=== PATIENT | female | born 1980 | race Caucasian/White ===

== ENCOUNTER 2016-12-17 00:52 | Emergency (ER) ==
[2016-12-17 01:00] VITALS: BP 131/86; TEMP 98.2; BMI 38.0
[2016-12-17] MEDS ORDERED: DECADRON 4 MG/ML SDV IM STA (01:26)
--- NOTE | 2016-12-17 05:01 | ED.PDOC ---
General ED Provider: Dr. ROSA RAZO-ER Chief Complaint: Non-specific Complaint Stated Complaint: i think i got bit by something--i was out visiting a friend in the [place] and my foot starting swelling and burning and itchying.. Time Seen by Physician: 00:55 Mode of Arrival: Walk-In Information Source: Patient Exam Limitations: No limitations Primary Care Provider: ROSA RAZO Nursing and Triage Documentation Reviewed and Agree: Yes Skin Complaint Exam - Skin/Soft Tissue Complaint/Exam Onset/Duration: 30 min Symptoms Are: Still present Timing: Constant Initial Severity: Mild Current Severity: Mild Location: anterior left foot Character: Reports: Redness, Swelling, Raised, Painful Aggravating: Reports: None Alleviating: Reports: None Associated Signs and Symptoms: Reports: Itching, Tenderness. Denies: Fever, Chills, Drainage, Bruising, Red streaks, Joint swelling Related History: Reports: Insect bite/sting Related Surgical History: Reports: None Recent Exposure to Others w/Similar Symptoms: No Skin Findings: Present: Erythema Joint Tenderness Present: No Differential Diagnoses: Infection, Other Review of Systems - Review Of Systems Constitutional: Reports: No symptoms Eyes: Reports: No symptoms Ears, Nose, Mouth, Throat: Reports: No symptoms Respiratory: Reports: No symptoms Cardiac: Reports: No symptoms GI: Reports: No symptoms : Reports: No symptoms Musculoskeletal: Reports: Gout, Other Skin: Reports: No symptoms Neurological: Reports: No symptoms Endocrine: Reports: No symptoms Hematologic/Lymphatic: Reports: No symptoms All Other Systems: Reviewed and Negative Past Medical History - Past Medical History Previously Healthy: Yes Endocrine: Reports: None Cardiovascular: Reports: None Respiratory: Reports: Asthma Hematological: Reports: None Gastrointestinal: Reports: None Genitourinary: Reports: None Neuro/Psych: Reports: Seizure, Anxiety Musculoskeletal: Reports: None Cancer: Reports: None Last Menstrual Period: PRESENTLY - Surgical History General Surgical History: Reports: , Tonsillectomy, Adenoidectomy - Family History Family History: Reports: Unknown - Social History Smoking Status: Former smoker Hx Substance Use: No Alcohol Screening: Occasionally - Immunizations Tetanus Shot up to Date: (UNKNOWN) Physical Exam - Physical Exam Appearance: Well-appearing, No pain distress, Well-nourished Pain Distress: Mild Eyes: JOHN, EOMI, Conjunctiva clear ENT: Ears normal, Nose normal, Oropharynx normal Neck: Supple Respiratory: Airway patent, Breath sounds clear, Breath sounds equal, Respirations nonlabored Cardiovascular: RRR, Pulses normal, No rub, No murmur GI/: Soft, Nontender, No masses, Bowel sounds normal, No Organomegaly Musculoskeletal: Limited ROM Skin: Warm, Dry, Normal color Neurological: Sensation intact, Motor intact, Reflexes intact, Cranial nerves intact, Alert, Oriented Psychiatric: Affect appropriate, Mood appropriate Re-Evaluation - Re-Evaluation Time of Re-Evaluation: 05:43 Status: Improved Vital Signs Stable: Yes Pain Level: 0 Appearance: NAD Lungs: Clear Skin: Warm and Dry Neuro: Alert and Oriented X3 CV: RRR Critical Care Note - Critical Care Note Total Time (mins): 0 Course - Course Hematology/Chemistry: 12/17/16 04:55 Orders, Labs, Meds: Lab Review 12/17/16 04:55 WBC 8.53 RBC 4.28 Hgb 13.5 Hct 39.1 MCV 91.4 MCH 31.5 H MCHC 34.5 RDW Coeff of Gudelia 12.6 Plt Count 256 Immature Gran % (Auto) 0.4 Neut % (Auto) 77.4 Lymph % (Auto) 18.8 Ramsey % (Auto) 2.3 Eos % (Auto) 0.6 Baso % (Auto) 0.5 Immature Gran # (Auto) 0.0 Neut # 6.6 Lymph # 1.6 Ramsey # 0.2 L Eos # 0.1 Baso # 0.0 D-Dimer (Manual) 248.89 Orders Category Date Time Status CBC W/ AUTO DIFF Stat LAB 12/17/16 04:55 Completed D-DIMER Stat LAB 12/17/16 04:55 Completed Dexamethasone 4 mg/ml Inj [Decadron 4 mg/ml Sdv] MEDS 12/17/16 01:26 Discontinued 4 mg IM ONCE STA Medications Discontinued Medications Generic Name Dose Route Start Last Admin Trade Name Freq PRN Reason Stop Dose Admin Dexamethasone Sodium Phosphate 4 mg 12/17/16 01:26 12/17/16 01:33 Decadron 4 Mg/Ml Sdv IM 12/17/16 01:27 4 mg ONCE STA Administration Vital Signs: Temp Pulse Resp BP Pulse Ox 12/17/16 00:53 98.2 F 73 18 131/86 100 Departure - Departure Time of Disposition: 05:43 Disposition: HOME SELF-CARE Discharge Problem: Insect bite Qualifiers: Encounter type: initial encounter Qualifier Code: (W57.XXXA) Bitten or stung by nonvenomous insect and other nonvenomous arthropods, initial encounter Instructions: Insect Bite or Sting (ED) Condition: Good Pt referred to PMD for follow-up: Yes Additional Instructions: ice and elevation of foot--call me if any problems Allergies/Adverse Reactions: Allergies aspirin Adverse Reaction (Verified 12/17/16 01:01) codeine Adverse Reaction (Verified 12/17/16 01:01) hydromorphone HCl [From Dilaudid] Adverse Reaction (Verified 12/17/16 01:01) ibuprofen Adverse Reaction (Verified 12/17/16 01:01) latex Adverse Reaction (Verified 12/17/16 01:01) promethazine HCl [From Phenergan] Adverse Reaction (Verified 06/22/16 16:38) propoxyphene napsylate [From Darvocet-N 100] Adverse Reaction (Verified 01:01) Sulfa (Sulfonamide Antibiotics) Adverse Reaction (Verified 12/17/16 01:01) Home Medications: Ambulatory Orders Buspirone HCl 10 mg PO BID 12/17/16 Disposition Discussed With: Patient, Family
[2016-12-17 05:12] LABS: BASOPHILS % (AUTO) 0.5 % (0.0-3.0); EOSINOPHILS # (AUTO) 0.1 K/ul (0.0-0.7); EOSINOPHILS % (AUTO) 0.6 % (0.0-7.0); HEMATOCRIT 39.1 % (37.0-47.0); HEMOGLOBIN 13.5 g/dl (12.0-16.0); IMMATURE GRANULOCYTE % (AUTO) 0.4 % (0.0-5.0); LYMPHOCYTES # (AUTO) 1.6 K/uL (0.60-3.4); LYMPHOCYTES % (AUTO) 18.8 (10.0-50.0); MEAN CORPUSCULAR HEMOGLOBIN 31.5 pg (27.0-31.0); MEAN CORPUSCULAR HGB CONC 34.5 (31.8-35.4); MEAN CORPUSCULAR VOLUME 91.4 fl (81.0-99.0); MONOCYTES # (AUTO) 0.2 K/uL (0.4-2.0); MONOCYTES % (AUTO) 2.3 (0-10); NEUTROPHILS # (AUTO) 6.6 K/ul (2.0-6.9); NEUTROPHILS % (AUTO) 77.4; PLATELET COUNT 256 10^3/uL (140-440); RED BLOOD COUNT 4.28 10^6/ul (4.20-5.40); WHITE BLOOD COUNT 8.53 K/ul (4.6-10.2)
== END 2016-12-17 06:10 | disposition home or self-care (01) ==
LOC: ED 00:52
DX: S90.862A Insect bite (nonvenomous), left foot, initial encounter (principal); W57.XXXA Bitten or stung by nonvenomous insect and other nonvenomous arthropods, initial encounter
CPT/HCPCS: 36415; 85025; 85379; 96372; 99282

== ENCOUNTER 2017-02-22 14:38 | Outpatient (CLI) ==
--- NOTE | 2017-02-22 15:18 | CT ---
EXAM: CT of the abdomen pelvis without contrast History: Abdominal pain. Comparison: CT abdomen pelvis 03/01/2015 Technique: Multiplanar CT images through the abdomen pelvis were obtained without the administratio n of IV contrast Findings: Lung bases are clear. No acute osseous abnormalities. No renal stones and no hydronephro sis. The appendix is normal. Status post cholecystectomy. No focal liver or splenic lesions. No peripancreatic inflammation. Adrenal glands are unremarkable. No bowel obstruction. No free air a nd no ascites. No bladder wall thickening. No perirectal inflammation. Scattered colonic stool. Adnexal structures appear appropriate for patient's age. Impression: No acute intra-abdominal or pelvic process.
== END 2017-02-22 14:39 | disposition home or self-care (01) ==
LOC: RAD 14:38
PROVIDERS: ATTEND Family Medicine
DX: R10.84 Generalized abdominal pain (principal); R14.0 Abdominal distension (gaseous)
CPT/HCPCS: 74176

== ENCOUNTER 2017-03-08 19:52 | Emergency (ER) ==
[2017-03-08 19:52] VITALS: BMI 38.0
[2017-03-08 20:06] VITALS: BP 121/76; TEMP 98.8
--- NOTE | 2017-03-08 20:41 | ED.PDOC ---
General ED Provider: Dr. STEPHANI GILBERT Chief Complaint: Headache Stated Complaint: Pateint is a 36 year old female who comes to the ER with c/o headache that she describes a Sharp and intermittent at time. Started on the left cheondoism and has been migrating to the back of head. States it feels Like similar headaches. Admits to Nausea at present, Light sensitive. Talked to her physicain Dr. Razo's office today and was told to come to ER. Time Seen by Physician: 20:15 Mode of Arrival: Walk-In Information Source: Patient Exam Limitations: No limitations Primary Care Provider: ROSA RAZO Nursing and Triage Documentation Reviewed and Agree: Yes Neurological Complaint Exam - Headache Complaint/Exam Onset: Gradual Duration: 4 weeks Symptoms Are: Still present Timing: Constant Worst Headache Ever: No Initial Severity: Moderate Current Severity: Severe Location: Diffuse Character: Reports: Dull, Throbbing, Typical headache, Migraine Aggravating: Reports: Bright lights Alleviating: Reports: None Associated Signs and Symptoms: Reports: Nausea, Vomiting. Denies: Dizziness, Seizure, Sinus pressure, Fever, Neck pain, Neck stiffness, Decreased LOC, Visual changes Related History: Reports: Similar episode Related Surgical History: Reports: None SAH Risk Factors: Reports: None Meningitis Risk Factors: Reports: None SDH Risk Factors: Reports: None Temporal Arteritis Risk Factors: Reports: None Normal Head CT Within Last 12 Months: Yes (1 year ago ) Fundoscopic Exam: Present: Normal Findings Papilledema Present: No Sinus Tenderness: Present: None TMJ Tenderness: Present: None Glascow Coma Scale (see protocol): 15 Meningeal Signs Positive: Yes ROM Limited In: No Limitiations Focal Weakness: Present: None Focal Sensory Loss: Present: None Gait: Normal Nystagmus Present: No Gag Reflex Present: Yes [id number]: Normal Findings Romberg Test Positive: No Babinski Sign: Negative Right, Negative Left Head Picture: 1 - headache 2 - headache Differential Diagnoses: Meningitis, Migraine Review of Systems - Review Of Systems Constitutional: Reports: No symptoms Eyes: Reports: Photophobia Ears, Nose, Mouth, Throat: Reports: No symptoms Respiratory: Reports: No symptoms Cardiac: Reports: No symptoms GI: Reports: Nausea, Poor appetite : Reports: No symptoms Musculoskeletal: Reports: No symptoms Skin: Reports: No symptoms Neurological: Reports: Anxiety, Headache Endocrine: Reports: No symptoms Hematologic/Lymphatic: Reports: No symptoms All Other Systems: Reviewed and Negative Past Medical History - Past Medical History Previously Healthy: Yes Endocrine: Reports: None Cardiovascular: Reports: None Respiratory: Reports: Asthma Hematological: Reports: None Gastrointestinal: Reports: None Genitourinary: Reports: None Neuro/Psych: Reports: Migraine, Seizure, Anxiety Musculoskeletal: Reports: None Cancer: Reports: None Last Menstrual Period: 02/11/17 - Surgical History General Surgical History: Reports: , Tonsillectomy, Adenoidectomy - Family History Family History: Reports: Unknown - Social History Smoking Status: Former smoker Hx Substance Use: No Alcohol Screening: None - Immunizations Tetanus Shot up to Date: No (unsure) Physical Exam - Physical Exam Appearance: Ill-appearing, Obese Ill-appearing: Moderate Pain Distress: Severe Eyes: JOHN, EOMI, Conjunctiva clear ENT: Nose normal, Oropharynx normal Neck: Supple Respiratory: Airway patent, Breath sounds clear, Breath sounds equal, Respirations nonlabored Cardiovascular: RRR, Pulses normal, No rub, No murmur GI/: Soft, Nontender, No masses, Bowel sounds normal, No Organomegaly Musculoskeletal: Normal strength, ROM intact Skin: Warm, Dry, Normal color Neurological: Sensation intact, Motor intact, Alert, Oriented Psychiatric: Anxious Critical Care Note - Critical Care Note Total Time (mins): 10 Course - Course Orders, Labs, Meds: Orders Category Date Time Status Ondansetron HCl/Pf [Zofran 4 mg/2 ml] MEDS 03/08/17 20:44 Discontinued 4 mg IM ONCE STA Sumatriptan Succinate [Imitrex] MEDS 03/08/17 20:45 Discontinued 6 mg SUBCUT ONCE STA Medications Discontinued Medications Generic Name Dose Route Start Last Admin Trade Name Darwinq PRN Reason Stop Dose Admin Ondansetron HCl 4 mg 03/08/17 20:44 03/08/17 20:54 Zofran 4 Mg/2 Ml IM 03/08/17 20:45 4 mg ONCE STA Administration Sumatriptan Succinate 6 mg 03/08/17 20:45 03/08/17 20:54 Imitrex SUBCUT 03/08/17 20:46 6 mg ONCE STA Administration Vital Signs: Temp Pulse Resp BP Pulse Ox 03/08/17 19:58 98.8 F 73 20 121/76 97 Departure - Departure Time of Disposition: 21:45 Disposition: HOME SELF-CARE Discharge Problem: Migraine Instructions: Migraine Headache (ED) Condition: Stable Pt referred to PMD for follow-up: Yes Additional Instructions: Take medications as prescribed Follow up wth PCP in 3 days Prescriptions: Ondansetron HCl [Zofran Tab] 4 mg PO Q8H PRN #14 tablet PRN Reason: Nausea / Vomiting Sumatriptan [Imitrex] 20 mg NS BID PRN #5 spray PRN Reason: Migrane Allergies/Adverse Reactions: Allergies aspirin Adverse Reaction (Verified 03/08/17 19:56) codeine Adverse Reaction (Verified 03/08/17 19:56) hydromorphone HCl [From Dilaudid] Adverse Reaction (Verified 03/08/17 19:56) ibuprofen Adverse Reaction (Verified 03/08/17 19:56) latex Adverse Reaction (Verified 03/08/17 19:56) promethazine HCl [From Phenergan] Adverse Reaction (Verified 03/08/17 19:56) propoxyphene napsylate [From Darvocet-N 100] Adverse Reaction (Verified 19:56) Sulfa (Sulfonamide Antibiotics) Adverse Reaction (Verified 03/08/17 19:56) Home Medications: Ambulatory Orders Buspirone HCl 10 mg PO BID 12/17/16 Ondansetron HCl [Zofran Tab] 4 mg PO Q8H PRN #14 tablet 03/08/17 Orphenadrine Citrate [Norflex] 100 mg PO BEDTIME PRN 03/08/17 Sumatriptan [Imitrex] 20 mg NS BID PRN #5 spray 03/08/17 Disposition Discussed With: Patient, Family
[2017-03-08] MEDS ORDERED: ZOFRAN 4 MG/2 ML IM STA (20:44)
[2017-03-08] MEDS ORDERED: IMITREX SUBCUT STA (20:45)
== END 2017-03-08 22:03 | disposition home or self-care (01) ==
LOC: ED 19:52
DX: G43.909 Migraine, unspecified, not intractable, without status migrainosus (principal)
CPT/HCPCS: 96372; 99283

== ENCOUNTER 2017-03-21 22:13 | Emergency (ER) ==
[2017-03-21 22:19] VITALS: TEMP 99.4; BMI 39.5
[2017-03-21] MEDS ORDERED: IMITREX SUBCUT STA (22:29)
[2017-03-21] MEDS ORDERED: ZOFRAN 4 MG/2 ML IM STA (22:29)
--- NOTE | 2017-03-21 22:31 | ED.PDOC ---
General ED Provider: Dr. OBED THOMASON Chief Complaint: Headache Stated Complaint: having migraiange attack, nasal imitrex did not help. Time Seen by Physician: 22:29 Mode of Arrival: Walk-In Information Source: Patient Primary Care Provider: ROSA RAZO Nursing and Triage Documentation Reviewed and Agree: Yes Neurological Complaint Exam - Headache Complaint/Exam Onset: Gradual Symptoms Are: Still present Timing: Intermittent Episodes Lasting: Hours Worst Headache Ever: No Initial Severity: Moderate Current Severity: Severe Location: Left, Frontal Character: Reports: Throbbing, Typical headache, Migraine Aggravating: Reports: Bright lights Alleviating: Reports: None Associated Signs and Symptoms: Reports: Nausea. Denies: Dizziness, Seizure, Vomiting, Sinus pressure, Fever, Neck pain, Neck stiffness, Decreased LOC, Visual changes Related History: Reports: Similar episode Related Surgical History: Reports: None SAH Risk Factors: Reports: None Meningitis Risk Factors: Reports: None SDH Risk Factors: Reports: None Normal Head CT Within Last 12 Months: No Temporal Artery Tenderness: Present: None Sinus Tenderness: Present: None TMJ Tenderness: Present: None Meningeal Signs Positive: No Pain on Passive Flexion-Positive Kernig's: No ROM Limited In: No Limitiations Focal Weakness: Present: None Focal Sensory Loss: Present: None Gait: Normal Nystagmus Present: No Gag Reflex Present: No Differential Diagnoses: Migraine Review of Systems - Review Of Systems Constitutional: Reports: No symptoms Eyes: Reports: No symptoms Ears, Nose, Mouth, Throat: Reports: No symptoms Respiratory: Reports: No symptoms Cardiac: Reports: No symptoms GI: Reports: No symptoms : Reports: No symptoms Musculoskeletal: Reports: No symptoms Skin: Reports: No symptoms Neurological: Reports: Headache Endocrine: Reports: No symptoms Hematologic/Lymphatic: Reports: No symptoms All Other Systems: Reviewed and Negative Past Medical History - Past Medical History Previously Healthy: Yes Endocrine: Reports: None Cardiovascular: Reports: None Respiratory: Reports: Asthma Hematological: Reports: None Gastrointestinal: Reports: None Genitourinary: Reports: None Neuro/Psych: Reports: Migraine, Seizure, Anxiety Musculoskeletal: Reports: None Cancer: Reports: None Last Menstrual Period: 03/04/17 - Surgical History General Surgical History: Reports: , Tonsillectomy, Adenoidectomy - Family History Family History: Reports: Unknown - Social History Smoking Status: Former smoker Hx Substance Use: No Alcohol Screening: None - Immunizations Tetanus Shot up to Date: No (unsure) Physical Exam - Physical Exam Appearance: Ill-appearing, Obese Eyes: OJHN, EOMI, Conjunctiva clear ENT: Ears normal, Nose normal, Oropharynx normal Respiratory: Airway patent, Breath sounds clear, Breath sounds equal, Respirations nonlabored Cardiovascular: RRR, Pulses normal, No rub, No murmur GI/: Soft, Nontender, No masses, Bowel sounds normal, No Organomegaly Musculoskeletal: Normal strength, ROM intact, No edema, No calf tenderness Skin: Warm, Dry, Normal color Neurological: Sensation intact, Motor intact, Reflexes intact, Cranial nerves intact, Alert, Oriented Psychiatric: Affect appropriate, Mood appropriate Critical Care Note - Critical Care Note Total Time (mins): 0 Course - Course Orders, Labs, Meds: Orders Category Date Time Status Ondansetron HCl/Pf [Zofran 4 mg/2 ml] MEDS 03/21/17 22:29 Stat 4 mg IM ONCE STA Sumatriptan Succinate [Imitrex] MEDS 03/21/17 22:29 Stat 6 mg SUBCUT ONCE STA Vital Signs: Temp Pulse Resp BP Pulse Ox 03/21/17 22:14 99.4 F 77 20 123/76 98 Departure - Departure Time of Disposition: 22:36 Disposition: HOME SELF-CARE Discharge Problem: Migraine headache Qualifiers: Migraine type: without aura Status migrainosus presence: without status migrainosus Intractability: not intractable Qualifier Code: (G43.009) Migraine without aura, not intractable, without status migrainosus Instructions: Migraine Headache (ED) Condition: Stable Pt referred to PMD for follow-up: Yes Additional Instructions: keep taking imitrex prn if not better needs f/u with PMD Allergies/Adverse Reactions: Allergies aspirin Adverse Reaction (Verified 03/21/17 22:19) codeine Adverse Reaction (Verified 03/21/17 22:19) hydromorphone HCl [From Dilaudid] Adverse Reaction (Verified 03/21/17 22:19) ibuprofen Adverse Reaction (Verified 03/21/17 22:19) latex Adverse Reaction (Verified 03/21/17 22:19) promethazine HCl [From Phenergan] Adverse Reaction (Verified 03/21/17 22:19) propoxyphene napsylate [From Darvocet-N 100] Adverse Reaction (Verified 22:19) Sulfa (Sulfonamide Antibiotics) Adverse Reaction (Verified 03/21/17 22:19) Home Medications: Ambulatory Orders Buspirone HCl 10 mg PO BID 12/17/16 Ondansetron HCl [Zofran Tab] 4 mg PO Q8H PRN #14 tablet 03/08/17 Orphenadrine Citrate [Norflex] 100 mg PO BEDTIME PRN 03/08/17 Sumatriptan Succinate [Imitrex] 100 mg PO DAILY PRN 03/21/17 Disposition Discussed With: Patient, Family
[2017-03-21 23:28] VITALS: BP 122/68
--- NOTE | 2017-03-21 23:31 | CT ---
EXAM: CT brain without contrast HISTORY: Headache TECHNIQUE: CT of the brain without intravenous contrast FINDINGS: There is no acute hemorrhage midline shift or mass effect. No hydrocephalus or abnormal extra-axial fluid collection. No significant parenchymal attenuation abnormality. The bony cranium appears normal. The visualized paranasal sinuses are clear. Soft tissues without significant abnorm ality. IMPRESSION: 1. CT of the brain within normal limits.
[2017-03-22] MEDS ORDERED: DECADRON 4 MG/ML SDV IM STA
== END 2017-03-22 01:25 | disposition home or self-care (01) ==
LOC: ED 22:13
DX: G43.009 Migraine without aura, not intractable, without status migrainosus (principal)
CPT/HCPCS: 96372; 99283

== ENCOUNTER 2017-08-05 22:01 | Emergency (ER) ==
[2017-08-05 22:01] VITALS: BMI 38.0
[2017-08-05 22:13] VITALS: BP 126/85; TEMP 99.3
--- NOTE | 2017-08-05 22:53 | ED.PDOC ---
General ED Provider: Dr. STEPHANI GILBERT Chief Complaint: Sore Throat Stated Complaint: Patient is a 37 year old female who comes to the ER with 3 day history of sore throat sore gums, body aches. Took 500mg Tylenol at 5 pm. Time Seen by Physician: 22:30 Mode of Arrival: Walk-In Information Source: Patient Exam Limitations: No limitations Primary Care Provider: ROSA RAZO Nursing and Triage Documentation Reviewed and Agree: Yes Review of Systems - Review Of Systems Constitutional: Reports: Chills, Fever Eyes: Reports: No symptoms Ears, Nose, Mouth, Throat: Reports: Mouth pain, Throat pain Respiratory: Reports: No symptoms Cardiac: Reports: No symptoms GI: Reports: No symptoms : Reports: No symptoms Musculoskeletal: Reports: No symptoms Skin: Reports: No symptoms Neurological: Reports: No symptoms Endocrine: Reports: No symptoms Hematologic/Lymphatic: Reports: No symptoms All Other Systems: Reviewed and Negative Past Medical History - Past Medical History Previously Healthy: Yes Endocrine: Reports: None Cardiovascular: Reports: None Respiratory: Reports: Asthma Hematological: Reports: None Gastrointestinal: Reports: None Genitourinary: Reports: None Neuro/Psych: Reports: Migraine, Seizure, Anxiety Musculoskeletal: Reports: None Cancer: Reports: None Last Menstrual Period: 07-13-17 - Surgical History General Surgical History: Reports: , Tonsillectomy, Adenoidectomy - Family History Family History: Reports: Unknown - Social History Smoking Status: Former smoker Hx Substance Use: No Alcohol Screening: None - Immunizations Tetanus Shot up to Date: No Physical Exam - Physical Exam Appearance: Ill-appearing Ill-appearing: Mild Pain Distress: Moderate Eyes: JOHN, EOMI, Conjunctiva clear ENT: Ears normal, Nose normal, Oropharynx normal Neck: Supple Respiratory: Airway patent, Breath sounds clear, Breath sounds equal, Respirations nonlabored Cardiovascular: RRR, Pulses normal, No rub, No murmur GI/: Soft, Nontender, No masses, Bowel sounds normal, No Organomegaly Musculoskeletal: Normal strength, ROM intact, No edema, No calf tenderness Skin: Warm, Dry, Normal color Neurological: Sensation intact, Motor intact, Alert, Oriented Psychiatric: Affect appropriate, Mood appropriate Critical Care Note - Critical Care Note Total Time (mins): 0 Course - Course Orders, Labs, Meds: Orders Category Date Time Status MOLECULAR GROUP A STREP Stat LAB 08/05/17 22:20 Results STREP SCREEN Stat LAB 08/05/17 22:20 Results Vital Signs: Temp Pulse Resp BP Pulse Ox 08/05/17 22:02 99.3 F 76 18 126/85 98 Departure - Departure Time of Disposition: 22:58 Disposition: HOME SELF-CARE Discharge Problem: Sore throat symptom, Viral syndrome Instructions: Viral Syndrome (ED) Condition: Fair Pt referred to PMD for follow-up: Yes Additional Instructions: Push fluids Alternate Tylenol with Motrin as needed for pain or fever. Allergies/Adverse Reactions: Allergies aspirin Adverse Reaction (Verified 08/05/17 22:13) codeine Adverse Reaction (Verified 08/05/17 22:13) hydromorphone HCl [From Dilaudid] Adverse Reaction (Verified 08/05/17 22:13) ibuprofen Adverse Reaction (Verified 08/05/17 22:13) Iodinated Contrast- Oral and IV Dye Adverse Reaction (Verified 08/05/17 22:13) latex Adverse Reaction (Verified 08/05/17 22:13) promethazine HCl [From Phenergan] Adverse Reaction (Verified 08/05/17 22:13) propoxyphene napsylate [From Darvocet-N 100] Adverse Reaction (Verified 22:13) Sulfa (Sulfonamide Antibiotics) Adverse Reaction (Verified 08/05/17 22:13) sumatriptan [From Imitrex] Adverse Reaction (Verified 08/05/17 22:13) Home Medications: Ambulatory Orders Buspirone HCl 10 mg PO BID 12/17/16 Ondansetron HCl [Zofran Tab] 4 mg PO Q8H PRN #14 tablet 03/08/17 Orphenadrine Citrate [Norflex] 100 mg PO BEDTIME PRN 03/08/17 Topiramate [Topamax] 50 mg PO TID 08/05/17 Disposition Discussed With: Patient
== END 2017-08-05 23:04 | disposition home or self-care (01) ==
LOC: ED 22:01
DX: J02.9 Acute pharyngitis, unspecified (principal); B34.9 Viral infection, unspecified
CPT/HCPCS: 87651; 87880; 99283

== ENCOUNTER 2018-02-27 07:44 | Outpatient (CLI) ==
[2018-02-27 00:32] VITALS: BMI 39.5
== END 2018-02-27 08:07 | disposition short-term general hospital (02) ==
LOC: AMBL 07:44
PROVIDERS: ATTEND Emergency Medicine
DX: R10.13 Epigastric pain (principal)

== ENCOUNTER 2018-03-26 20:46 | Emergency (ER) ==
[2018-03-26 20:46] VITALS: BMI 39.5
[2018-03-26 20:52] VITALS: BP 144/85; TEMP 98.5
[2018-03-26] MEDS ORDERED: TYLENOL PO STA (21:01)
--- NOTE | 2018-03-26 21:07 | ED.PDOC ---
General ED Provider: Dr. STEPHANI GILBERT Chief Complaint: Extremity Pain/Injury Stated Complaint: Patient states she accidentally fell 2 days ago then yesterday. Has sustained injuries to the right Shoulder, elbow wrsit and hand. Has limited mobility due to pain. Time Seen by Physician: 20:50 Mode of Arrival: Walk-In Information Source: Patient Exam Limitations: No limitations Primary Care Provider: ROSA RAZO Nursing and Triage Documentation Reviewed and Agree: Yes Does patient meet sepsis criteria?: No If yes, has appropriate treatment been initiated?: No System Inflammatory Response Syndrome: Not Applicable Sepsis Protocol: For patient's 13 years and over: Temp is 96.8 and below OR 101 and greater Pulse >90 BPM Resp >20/minute Acutely Altered Mental Status Are patient's symptoms suggestive of a new infection, such as: -Pneumonia -Skin, Soft Tissue -Endocarditis -UTI -Bone, Joint Infection -Implantable Device -Acute Abdominal Infection -Wound Infection -Meningitis -Blood Stream Catheter Infection -Unknown Musculoskeletal Complaint Exam - Hand/Wrist Complaint/Exam Location of Pain: Reports: Right, Hand, Wrist Mechanism of Injury: Reports: Trauma (fall ) Onset/Duration: 2 days Symptoms Are: Still present Onset of Pain: Reports: Immediate Initial Severity: Severe Current Severity: Moderate Location: Reports: Diffuse (Right upper extremity ) Character: Reports: Aching, Throbbing Alleviating: Reports: None Aggravating: Reports: Movement Associated Signs and Symptoms: Reports: Swelling, Numbness. Denies: Redness, Bruising, Fever, Weakness, Tingling Related History: Denies: Similar episode, Occupational injury Dominant Hand: Right Related Surgical History: Reports: None Hand/Wrist Findings: Present: Swelling, Ecchymosis Tenderness: Present: Radius, Ulna, Carpal Hand Picture: 1 - tenderness to palpation Differential Diagnoses: Closed Fracture, Sprain, Strain - Shoulder Pain Complaint/Exam Mechanism of Injury: Reports: Trauma Onset/Duration: 2 days Symptoms Are: Still present Timing: Constant Initial Severity: Severe Current Severity: Moderate Location: Reports: Diffuse Character: Reports: Aching, Throbbing, Spasmodic Alleviating: Reports: None Aggravating: Reports: Movement, Lifting, Flexion, Extension, Internal rotation Associated Signs and Symptoms: Reports: Swelling, Bruising Related History: Denies: Similar episode, Occupational injury, Dominant hand right Non-Orthopedic Risk Factors: Reports: None DVT Risk Factors: Reports: None Septic Arthritis Risk Factors: Reports: None Shoulder Findings: Absent: Ecchymosis, Abnormal contour, Rotation Tenderness: Present: Proximal humerus, Rotator cuff muscles Limited Range of Motion: Present: Abduction, Extension, Internal rotation, External rotation, Rotator cuff muscles Differential Diagnoses: Sprain, Strain Review of Systems - Review Of Systems Constitutional: Reports: No symptoms Eyes: Reports: No symptoms Ears, Nose, Mouth, Throat: Reports: No symptoms Respiratory: Reports: No symptoms Cardiac: Reports: No symptoms GI: Reports: No symptoms : Reports: No symptoms Musculoskeletal: Reports: Joint pain, Joint swelling, Muscle pain Skin: Reports: No symptoms Neurological: Reports: Anxiety Endocrine: Reports: No symptoms Hematologic/Lymphatic: Reports: No symptoms All Other Systems: Reviewed and Negative Past Medical History - Past Medical History Previously Healthy: Yes Endocrine: Reports: None Cardiovascular: Reports: None Respiratory: Reports: Asthma Hematological: Reports: None Gastrointestinal: Reports: GERD Genitourinary: Reports: None Neuro/Psych: Reports: Migraine, Seizure, Anxiety, Depression, Other (ADD) Musculoskeletal: Reports: Arthritis Cancer: Reports: None Last Menstrual Period: 1 WEEK AGO - Surgical History General Surgical History: Reports: (x2), Cholecystectomy, Tonsillectomy, Adenoidectomy - Family History Family History: Reports: Heart - Social History Smoking Status: Former smoker Hx Substance Use: No Alcohol Screening: None - Immunizations Tetanus Shot up to Date: No (UNKNOWN) Physical Exam - Physical Exam Appearance: Well-appearing, Ill-appearing Ill-appearing: Mild Pain Distress: Moderate Respiratory: Airway patent, Breath sounds clear, Breath sounds equal, Respirations nonlabored Cardiovascular: RRR, Pulses normal, No rub, No murmur Musculoskeletal: Limited ROM Skin: Warm, Dry Neurological: Sensation intact, Alert, Oriented Psychiatric: Anxious Critical Care Note - Critical Care Note Total Time (mins): 0 Course - Course Orders, Labs, Meds: Orders Category Date Time Status Splint [ED SPLINT APPLICATION] .ONCE EMERGENCY 03/26/18 21:31 Active Acetaminophen [Tylenol] MEDS 03/26/18 21:01 Discontinued 1,000 mg PO ONCE STA ELBOW, RIGHT MIN 3 VIEWS Stat RADS 03/26/18 20:59 Taken HAND, RIGHT 3 VIEWS Stat RADS 03/26/18 20:59 Taken SHOULDER, RIGHT MIN 2V Stat RADS 03/26/18 20:59 Taken WRIST, RIGHT 3 VIEWS Stat RADS 03/26/18 20:59 Taken Medications Discontinued Medications Generic Name Dose Route Start Last Admin Trade Name Darwinq PRN Reason Stop Dose Admin Acetaminophen 1,000 mg 03/26/18 21:01 03/26/18 21:20 Tylenol PO 03/26/18 21:02 1,000 mg ONCE STA Administration Vital Signs: Temp Pulse Resp BP Pulse Ox 03/26/18 20:46 98.5 F 94 H 16 144/85 H 96 Departure - Departure Time of Disposition: 21:50 Disposition: HOME SELF-CARE Discharge Problem: Sprain of wrist, right Qualifiers: Encounter type: initial encounter Qualified Code(s): S63.501A - Unspecified sprain of right wrist, initial encounter Rotator cuff strain Qualifiers: Encounter type: initial encounter Laterality: right Qualified Code(s): S46.011A - Strain of muscle(s) and tendon(s) of the rotator cuff of right shoulder, initial encounter Instructions: Wrist Sprain (ED), Rotator Cuff Injury (ED) Condition: Fair Pt referred to PMD for follow-up: Yes IPMP verified?: No Additional Instructions: Follow up with PCP In 2-3 days Take Tylenol as needed for pain Allergies/Adverse Reactions: Allergies aspirin Adverse Reaction (Verified 03/26/18 20:49) codeine Adverse Reaction (Verified 03/26/18 20:49) hydromorphone HCl [From Dilaudid] Adverse Reaction (Verified 03/26/18 20:49) ibuprofen Adverse Reaction (Verified 03/26/18 20:49) Iodinated Contrast- Oral and IV Dye Adverse Reaction (Verified 03/26/18 20:49) latex Adverse Reaction (Verified 03/26/18 20:49) promethazine HCl [From Phenergan] Adverse Reaction (Verified 03/26/18 20:49) propoxyphene napsylate [From Darvocet-N 100] Adverse Reaction (Verified 20:49) Sulfa (Sulfonamide Antibiotics) Adverse Reaction (Verified 03/26/18 20:49) sumatriptan [From Imitrex] Adverse Reaction (Verified 03/26/18 20:49) Home Medications: Ambulatory Orders Ondansetron HCl [Zofran Tab] 4 mg PO Q8H PRN #14 tablet 03/08/17 Pantoprazole Sodium [Protonix] 40 mg PO DAILY 02/26/18 Disposition Discussed With: Patient, Family
--- NOTE | 2018-03-27 07:44 | DI ---
Exam: Three views of the right shoulder. Comparison: Chest x-ray performed 02/26/2018. Reason for exam: Fall. FINDINGS: No acute fracture or malalignment. The joint spaces appear well maintained. The imaged o sseous structures appear grossly unremarkable without acute fracture. The humeral head articulates w ith the acetabulum. The clavicle appears intact. Impression: No acute fracture or dislocation in the right shoulder
--- NOTE | 2018-03-27 07:45 | DI ---
EXAM: Right wrist three-view HISTORY: Fell yesterday, then into day COMPARISON: None FINDINGS: No acute fracture or dislocation. Two well marginated ossifications near the ulnar styloi d are likely due to old trauma. marginated No focal soft tissue abnormality. IMPERSSION: No acute fracture or dislocation.
--- NOTE | 2018-03-27 07:45 | DI ---
EXAM: Radiographs, right elbow HISTORY: Initial presentation for right elbow trauma. COMPARISON: None available. TECHNIQUE: Three views. FINDINGS: Bone mineralization is normal. There is no fracture or dislocation. The joint spaces are maintained. Mild subcutaneous edema is seen over the posterior aspect of the proximal forearm. IMPRESSION: No fracture or dislocation.
--- NOTE | 2018-03-27 07:48 | DI ---
EXAM: RIGHT HAND, 3 VIEWS HISTORY: Injury, pain FINDINGS: There is a chronic avulsion fracture of the ulnar styloid. No acute fractures are obvious . Joints are intact. Soft tissues are within normal limits. IMPRESSION: No acute fracture or dislocation identified.
== END 2018-03-26 22:05 | disposition home or self-care (01) ==
LOC: ED 20:46
DX: S63.501A Unspecified sprain of right wrist, initial encounter (principal); S46.011A Strain of muscle(s) and tendon(s) of the rotator cuff of right shoulder, initial encounter; S59.901A Unspecified injury of right elbow, initial encounter; W19.XXXA Unspecified fall, initial encounter
CPT/HCPCS: 99282

== ENCOUNTER 2018-03-29 15:56 | Outpatient (CLI) | END 2018-03-29 15:57 | disposition home or self-care (01) | LOC: FCC-LAB 15:56 | PROVIDERS: ATTEND Family Medicine | DX: R73.9 Hyperglycemia, unspecified (principal) | CPT/HCPCS: 36415; 83037 ==

== ENCOUNTER 2018-06-29 20:24 | Outpatient (CLI) | payer OTHER | END 2018-06-29 20:25 | disposition home or self-care (01) | LOC: LAB 20:24 | PROVIDERS: ATTEND Family Medicine | DX: R30.0 Dysuria (principal) | CPT/HCPCS: 87086 ==

== ENCOUNTER 2018-07-11 08:46 | Emergency (ER) ==
[2018-07-11 08:47] VITALS: BMI 39.5
[2018-07-11 08:49] VITALS: BP 150/86; TEMP 98.1
--- NOTE | 2018-07-11 08:58 | ED.PDOC ---
General ED Provider: Dr. JOSE GARDINER Chief Complaint: Abdominal Pain Stated Complaint: Periumbilical pain X 4 days; nausea Time Seen by Physician: 08:55 Mode of Arrival: Walk-In Information Source: Patient Exam Limitations: No limitations Primary Care Provider: DON GAY Nursing and Triage Documentation Reviewed and Agree: Yes Does patient meet sepsis criteria?: No System Inflammatory Response Syndrome: Not Applicable Sepsis Protocol: For patient's 13 years and over: Temp is 96.8 and below OR 101 and greater Pulse >90 BPM Resp >20/minute Acutely Altered Mental Status Are patient's symptoms suggestive of a new infection, such as: -Pneumonia -Skin, Soft Tissue -Endocarditis -UTI -Bone, Joint Infection -Implantable Device -Acute Abdominal Infection -Wound Infection -Meningitis -Blood Stream Catheter Infection -Unknown Review of Systems - Review Of Systems Constitutional: Reports: Malaise, Sweats Respiratory: Reports: No symptoms Cardiac: Reports: No symptoms GI: Reports: Nausea. Denies: Vomiting Neurological: Reports: Anxiety All Other Systems: Reviewed and Negative Past Medical History - Past Medical History Previously Healthy: Yes Endocrine: Reports: None Cardiovascular: Reports: None Respiratory: Reports: Asthma Hematological: Reports: None Gastrointestinal: Reports: GERD Genitourinary: Reports: None Neuro/Psych: Reports: Migraine, Seizure, Anxiety, Depression, Other (ADD) Musculoskeletal: Reports: Arthritis Cancer: Reports: None Last Menstrual Period: last week - Surgical History General Surgical History: Reports: (x2), Cholecystectomy, Tonsillectomy, Adenoidectomy - Family History Family History: Reports: Heart - Social History Smoking Status: Former smoker Hx Substance Use: No Alcohol Screening: None Physical Exam - Physical Exam Appearance: Well-appearing Pain Distress: None Eyes: JOHN ENT: Oropharynx normal Neck: Supple Respiratory: Airway patent, Breath sounds clear, Breath sounds equal, Respirations nonlabored Cardiovascular: RRR, Pulses normal GI/: Soft, Nontender, Bowel sounds normal Musculoskeletal: Normal strength, ROM intact Skin: Warm, Dry, Normal color Neurological: Sensation intact, Motor intact Psychiatric: Affect appropriate, Mood appropriate Re-Evaluation - Re-Evaluation Time of Re-Evaluation: 09:55 (Back from BR; no durther difficulty) Status: Unchanged Appearance: NAD Skin: Warm and Dry Critical Care Note - Critical Care Note Total Time (mins): 10 Course - Course Hematology/Chemistry: 07/11/18 09:05 07/11/18 09:05 Orders, Labs, Meds: Lab Review 07/11/18 07/11/18 07/11/18 09:05 09:05 09:15 WBC 8.44 RBC 4.72 Hgb 14.6 Hct 43.0 MCV 91.1 MCH 30.9 MCHC 34.0 RDW Coeff of [place] 12.8 Plt Count 270 Immature Gran % (Auto) 0.5 Neut % (Auto) 66.7 Lymph % (Auto) 27.4 [place] % (Auto) 4.1 Eos % (Auto) 0.7 Baso % (Auto) 0.6 Immature Gran # (Auto) 0.0 Neut # (Auto) 5.6 Lymph # (Auto) 2.3 [place] # (Auto) 0.4 Eos # (Auto) 0.1 Baso # (Auto) 0.1 Sodium 135.3 L Potassium 4.04 Chloride 101.2 Carbon Dioxide 29.5 Anion Gap 8.64 BUN 7.2 Creatinine 0.96 Estimated GFR (MDRD) 65.00 BUN/Creatinine Ratio 7.50 Glucose 105.4 Calcium 9.44 Total Bilirubin 0.51 AST 22.7 ALT 20.7 Alkaline Phosphatase 88.5 Total Protein 7.72 Albumin 4.33 Globulin 3.39 Albumin/Globulin Ratio 1.27 Lipase 109.4 Urine Color Yellow Urine Clarity Clear Urine pH 7.0 Ur Specific [place] 1.015 Urine Protein Negative Urine Glucose (UA) Negative Urine Ketones Negative Urine Blood Negative Urine Nitrite Negative Urine Bilirubin Negative Urine Urobilinogen 0.2 Ur Leukocyte Esterase Negative Orders Category Date Time Status CBC W/ AUTO DIFF Stat LAB 07/11/18 09:05 Completed COMPREHENSIVE METABOLIC PANEL Stat LAB 07/11/18 09:05 Completed LIPASE Stat LAB 07/11/18 09:05 Completed URINALYSIS C & S IF INDICATED Stat LAB 07/11/18 09:15 Completed Vital Signs: Temp Pulse Resp BP Pulse Ox 07/11/18 08:47 98.1 F 65 20 150/86 H 98 Departure - Departure Time of Disposition: 10:00 Disposition: HOME SELF-CARE Discharge Problem: Abdominal pain Qualifiers: Abdominal location: periumbilical Qualified Code(s): R10.33 - Periumbilical pain Instructions: Acute Abdominal Pain (ED) Condition: Stable Pt referred to PMD for follow-up: Yes IPMP verified?: No ([employer] EN[employer] SCI[employer] substance not prescribed) Additional Instructions: Use your Zofran if needed for nausea; follow up with primary care if this continues next week. Call for appointment; advise them of ER visit with blood work and urinalysis. Allergies/Adverse Reactions: Allergies aspirin Adverse Reaction (Verified 07/11/18 08:50) codeine Adverse Reaction (Verified 07/11/18 08:50) hydromorphone HCl [From Dilaudid] Adverse Reaction (Verified 07/11/18 08:50) ibuprofen Adverse Reaction (Verified 07/11/18 08:50) Iodinated Contrast- Oral and IV Dye Adverse Reaction (Verified 07/11/18 08:50) latex Adverse Reaction (Verified 07/11/18 08:50) promethazine HCl [From Phenergan] Adverse Reaction (Verified 07/11/18 08:50) propoxyphene napsylate [From Darvocet-N 100] Adverse Reaction (Verified 08:50) Sulfa (Sulfonamide Antibiotics) Adverse Reaction (Verified 07/11/18 08:50) sumatriptan [From Imitrex] Adverse Reaction (Verified 07/11/18 08:50) Home Medications: Ambulatory Orders Pantoprazole Sodium [Protonix] 40 mg PO DAILY 02/26/18 Disposition Discussed With: Patient
== END 2018-07-11 10:19 | disposition home or self-care (01) ==
LOC: ED 08:46
DX: R10.33 Periumbilical pain (principal); R11.0 Nausea
CPT/HCPCS: 36415; 80053; 81001; 83690; 85025; 99283

== ENCOUNTER 2019-02-14 08:57 | Emergency (ER) ==
[2019-02-14 09:01] VITALS: BP 145/86; TEMP 98.3; BMI 38.0
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
[2019-02-14] MEDS ORDERED: TORADOL IM STA (09:31)
--- NOTE | 2019-02-14 11:36 | DI ---
EXAM: LEFT HUMERUS, 2 VIEWS HISTORY: Heart strain, pain FINDINGS: Bone and joint structures appear normal. No fracture or joint dislocation is seen. There is no significant arthritic change, bone density abnormality or soft tissue finding. IMPRESSION: Unremarkable study.
--- NOTE | 2019-02-14 11:36 | DI ---
EXAM: LEFT FOREARM, 2 VIEWS HISTORY: Arm strain, pain FINDINGS: No displaced fracture or bony erosion. Joints are within normal limits. No joint disloc ation or effusion. Soft tissues within normal limits. IMPRESSION: Within normal limits.
--- NOTE | 2019-02-14 11:36 | DI ---
EXAM: LEFT SHOULDER HISTORY: Shoulder strain FINDINGS: Left shoulder three-view. Bone and joint structures are within normal limits. There is n o joint dislocation or fracture identified. Bone density and soft tissues are unremarkable. IMPRESSION: Within normal limits.
--- NOTE | 2019-02-14 11:36 | DI ---
EXAM: LEFT HAND THREE VIEWS HISTORY: Hand strain, pain FINDINGS: Bone and joint structures appear normal. There is no fracture, joint dislocation, bone density abnormality or soft tissue finding. IMPRESSION: Within normal limits.
== END 2019-02-14 12:01 | disposition home or self-care (01) ==
LOC: ED 08:57
DX: S46.912A Strain of unspecified muscle, fascia and tendon at shoulder and upper arm level, left arm, initial encounter (principal); S59.912A Unspecified injury of left forearm, initial encounter; S69.92XA Unspecified injury of left wrist, hand and finger(s), initial encounter; X50.1XXA Overexertion from prolonged static or awkward postures, initial encounter
CPT/HCPCS: 96372; 99283

== ENCOUNTER 2019-02-25 12:05 | Outpatient (CLI) ==
--- NOTE | 2019-02-25 15:12 | MRI ---
EXAM: MRI of the left shoulder without contrast COMPARISON: Left shoulder and left humerus radiographs 02/14/2019. HISTORY: Left shoulder pain with decreased range of motion. Altercation. TECHNIQUE: Multiplanar noncontrast MR images of the left shoulder were acquired using a 1.2 Katharina ma gnet. The submitted images are mildly limited by patient motion artifact and several sequences were repeated. There is mild to moderate supraspinatus tendinosis with mild bursal surface fraying of the supraspina tus at/lateral to the acromion. Mild to moderate subscapularis and minimal infraspinatus tendinosis. No evidence of a full-thickness rotator cuff tear or tendon retraction. No significant fluid in th e subacromial/subdeltoid bursa. Limited assessment of the glenoid labrum on this non arthrographic study. No paralabral cyst. Gleno humeral joint space is preserved with physiologic amount of fluid throughout the joint. No evidence of an acute fracture dislocation. The long head of the biceps is located within the bicipital groove and is intact. Mild capsular hypertrophy degenerative spurring at the acromioclavicular joint without evidence of an os acromiale or abnormal widening of the joint space. No soft tissue mass identified. IMPRESSION: 1. No acute osseous injury. 2. Mild to moderate rotator cuff tendinosis with mild bursal surface fraying of the supraspinatus. No focal rotator cuff tear. 3. Mild degenerative changes of the acromioclavicular joint.
== END 2019-02-25 12:06 | disposition home or self-care (01) ==
LOC: RAD 12:05
PROVIDERS: ATTEND Family Medicine
DX: S46.912A Strain of unspecified muscle, fascia and tendon at shoulder and upper arm level, left arm, initial encounter (principal); T74.91XA Unspecified adult maltreatment, confirmed, initial encounter

== ENCOUNTER 2019-02-26 11:59 | Outpatient (CLI) ==
--- NOTE | 2019-02-26 13:43 | MRI ---
EXAM: MRI of the left humerus without contrast COMPARISON: MRI of the left shoulder 02/25/2019. Left humerus radiograph 02/14/2019. HISTORY: Pain and decreased range of motion. Altercation. Strain of muscle. TECHNIQUE: Multiplanar noncontrast MR images of the left humerus were acquired using a 1.2 Katharina mag net with field of view extending from the proximal to mid shaft through the elbow. The proximal yong jarred and shoulder were excluded from the field of view. Dedicated MRI of the left shoulder was perfor med to the previous day and that report has been dictated separately. FINDINGS: There is no evidence of an acute fracture, osteomyelitis or marrow infiltrating process. Small elbow effusion which is nonspecific. There is mild distal triceps tendinosis without a tendon tear. Low-level subcutaneous edema posterio rly at the level of the olecranon process and distal triceps underlying a gel capsule which may repre sent soft tissue contusion. Low-level intramuscular edema along the distal myotendinous junction of the triceps which may represent low grade strain/contusion without a drainable fluid collection. Add itional gel capsules are identified within the posteromedial aspect of the mid to distal humerus with out underlying soft tissue or osseous abnormality at that site. No drainable intramuscular deep fasc ial fluid collection. No soft tissue mass identified. There is some edema extending along the surfa ce of the cubital tunnel. The underlying ulnar nerve is grossly unremarkable. IMPRESSION: 1. Subcutaneous edema posteriorly overlying the distal triceps and olecranon process which may repre sent soft tissue contusion. Low grade strain/contusion of the distal myotendinous junction of the tr iceps with mild distal triceps tendinosis without a full-thickness tendon tear or drainable fluid col lection. Edema extends along the surface of the cubital tunnel with grossly unremarkable appearance of the ulnar nerve though correlation for signs of ulnar neuropathy/neuritis is recommended. 2. No acute osseous abnormality. 3. Small elbow effusion which is nonspecific. Overall limited assessment of the elbow due to the pr otocol and field of view employed.
== END 2019-02-26 12:00 | disposition home or self-care (01) ==
LOC: RAD 11:59
PROVIDERS: ATTEND Family Medicine
DX: S46.912A Strain of unspecified muscle, fascia and tendon at shoulder and upper arm level, left arm, initial encounter (principal); T74.91XA Unspecified adult maltreatment, confirmed, initial encounter